=== PATIENT | female | born 1995 | race Two or more races ===

== ENCOUNTER 2022-10-10 19:15 | Emergency (ER) | payer MEDICAID, OTHER ==
[~2022-10-10] VITALS: Ht 170.2 cm; Wt 55.7 kg
[2022-10-10 21:07] LABS: Urine Bacteria FEW /hpf (None Seen); Urine Blood Negative /uL (Negative); Urine Specific Gravity 1.025 (1.001-1.035); Urine WBC 2 /hpf (0 - 5)
[2022-10-10] MEDS ORDERED: METR500T PO (23:45)
[2022-10-11 00:06] VITALS: BP 119/72
== END 2022-10-11 02:32 | disposition home or self-care (01) ==
LOC: ER 19:15
DX: N76.0 Acute vaginitis (principal); Z32.02 Encounter for pregnancy test, result negative
CPT/HCPCS: 81001; 81025

== ENCOUNTER 2023-06-14 03:13 | Emergency (ER) | payer MEDICAID ==
[~2023-06-14] VITALS: Ht 175.3 cm; Wt 60.6 kg
[~2023-06-14 03:13] MED LIST: METR500T PO
[2023-06-14] MEDS ORDERED: HYDROcodone-ACET 5/325MG TAB PO ONE (05:00)
[2023-06-14 05:07] VITALS: BP 116/73; PULSE 69; RESP 16; TEMP 97.5; O2SAT 100
[2023-06-14] MEDS ORDERED: LIDO5PAD8 EX (05:28)
[2023-06-14] MEDS ORDERED: CYCL-839 PO (05:28)
[2023-06-14] MEDS ORDERED: IBUP-1455 PO (05:28)
== END 2023-06-14 06:01 | disposition home or self-care (01) ==
LOC: ER 03:13
DX: S46.911A Strain of unspecified muscle, fascia and tendon at shoulder and upper arm level, right arm, initial encounter (principal); Z79.899 Other long term (current) drug therapy; V49.9XXA Car occupant (driver) (passenger) injured in unspecified traffic accident, initial encounter; Y93.89 Activity, other specified; Y92.410 Unspecified street and highway as the place of occurrence of the external cause; Y99.8 Other external cause status
CPT/HCPCS: 73030